=== PATIENT | female | born 1950 | race Caucasian/White ===

== ENCOUNTER 2018-11-25 09:07 | Emergency (ER) | payer MEDICARE ==
[2018-11-25] MEDS ORDERED: Albuterol 2.5 MG/3 ML NEB.SOL* (0.083%) INH ONE (11:26)
[2018-11-25] MEDS ORDERED: predniSONE TAB* 20 MG PO ONE (11:26)
--- NOTE | 2018-11-25 11:42 | UC ---
Respiratory Complaint HPI - HPI Summary HPI Summary: 2 DAYS OF COUGH, CONGESTION AND FEVER, TMAX 101 LAST NIGHT. FEELS SHORT OF BREATH AND WHEEZY. HAS A HISTORY OF ASTHMA AND DID USE HER ALBUTEROL WITH SOME TRANSIENT EFFECT. NO NAUSEA, HEADACHE, BODY ACHES. - History of Current Complaint Chief Complaint: UCRespiratory Stated Complaint: URI SX Time Seen by Provider: 11/25/18 11:20 Hx Obtained From: Patient Onset/Duration: Gradual Onset, Lasting Days, Still Present Timing: Constant Severity Initially: Moderate Severity Currently: Moderate Pain Intensity: 0 Pain Scale Used: 0-10 Numeric Character: Cough: Nonproductive Aggravating Factors: Nothing Alleviating Factors: Nothing Associated Signs And Symptoms: Positive: Dyspnea, Fever, Chills, Wheezing, URI, Nasal Congestion - Allergies/Home Medications Allergies/Adverse Reactions: Allergies Allergy/AdvReac Type Severity Reaction Status Date / Time Sulfa (Sulfonamide Allergy Unknown Unknown Verified 11/25/18 09:18 Antibiotics) Reaction Details gluten Allergy POOR Verified 11/25/18 09:18 DIGESTION DAIRY Allergy Congestion Uncoded 11/25/18 09:18 Home Medications: Home Medications Potassium Chlor TAB* [Potassium Chlor TAB 20 MEQ*] 20 meq PO DAILY 11/25/18 [ History Confirmed 11/25/18] PMH/Surg Hx/FS Hx/Imm Hx Respiratory History: Asthma - Surgical History Surgical History: Yes Surgery Procedure, Year, and Place: LEFT INGUINAL HERNIA REPAIR LT CATERACT=. TONSILLECTOMY. 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 bilat CATARACT SURGERY- [facility] [place]. MINI LAPAROTOMY AND TUBAL LIGATION-1983 - Family History Known Family History: Positive: Non-Contributory - Social History Alcohol Use: Daily Alcohol Amount: 1 glass of wine Substance Use Type: None Smoking Status (MU): Never Smoked Tobacco - Immunization History Most Recent Influenza Vaccination: UNSURE & REFUSES Most Recent Tetanus Shot: UP TO DATE Most Recent Pneumonia Vaccination: UNSURE & REFUSES Review of Systems All Other Systems Reviewed And Are Negative: Yes Constitutional: Positive: Fever, Chills, Fatigue ENT: Positive: Nasal Discharge Respiratory: Positive: Shortness Of Breath, Cough, Other - WHEEZE Cardiovascular: Positive: Negative Gastrointestinal: Positive: Negative Physical Exam Triage Information Reviewed: Yes Appearance: Well-Appearing, No Pain Distress, Well-Nourished Vital Signs: Initial Vital Signs Temp 98.4 F 11/25/18 09:13 Pulse 83 11/25/18 09:13 Resp 14 11/25/18 09:13 BP 125/57 11/25/18 09:13 Pulse Ox 96 11/25/18 09:13 Vital Signs Reviewed: Yes Eyes: Positive: Conjunctiva Clear ENT: Positive: Hearing grossly normal, Pharynx normal, TMs normal Neck: Positive: Supple, Nontender, No Lymphadenopathy Respiratory: Positive: No respiratory distress, No accessory muscle use, Decreased breath sounds, Rhonchi - OCCASIONAL IN BASES, Wheezing - DIFFUSE Cardiovascular Exam: Normal Abdomen Description: Positive: Soft Musculoskeletal: Positive: No Edema Neurological: Positive: Alert Psychological: Positive: Age Appropriate Behavior Skin: Negative: Rashes Diagnostics - Radiology CXR Radiology Interpretation Completed By: Radiologist Summary of Radiographic Findings: HYPERINFLATION, CONSISTENT WITH COPD. NO ACTIVE CARDIOPULMONARY DISEASE. Re-Evaluation - Re-Evaluation First Eval Re-Evaluation Time: 12:20 - FEELS BETTER AFTER ALBUTEROL NEB AND PREDNISONE Change: Improved Respiratory Course/Dx - Differential Dx/Diagnosis Provider Diagnosis: COPD exacerbation Discharge - Sign-Out/Discharge Documenting (check all that apply): Patient Departure All imaging exams completed and their final reports reviewed: Yes - Discharge Plan Condition: Stable Disposition: HOME Prescriptions: Albuterol HFA INHALER* [Ventolin HFA Inhaler*] 2 puff INH Q4H PRN #1 mdi PRN Reason: Shortness Of Breath Azithromycin 500 mg PO DAILY #5 tab predniSONE TAB* [Deltasone TAB*] 50 mg PO DAILY #4 tab Patient Education Materials: COPD (Chronic Obstructive Pulmonary Disease) (ED) Referrals: Ira Dela Cruz MD [Primary Care Provider] - If Needed Additional Instructions: CHEST X-RAY TODAY SHOWS CHANGES CONSISTENT WITH COPD. THIS UNDERLYING LUNG CONDITION PUTS YOU AT INCREASED RISK OF DEVELOPING SECONDARY BACTERIAL INFECTION. TAKE THE ANTIBIOTIC DAILY. CONTINUE PREDNISONE FOR AN ADDITIONAL 4 DAYS. ALBUTEROL REFILL ALSO SENT IN. FOLLOW-UP WITH YOUR PCP TO DISCUSS FURTHER EVALUATION FOR YOUR POSSIBLE DIAGNOSIS OF COPD. REST, HYDRATE, OTC MEDS NEEDED FOR SYMPTOM RELIEF. - Billing Disposition and Condition Condition: STABLE Disposition: Home
[2018-11-25 12:40] VITALS: BP 115/65
== END 2018-11-25 12:39 | disposition home or self-care (01) ==
LOC: UCEAST 09:07
DX: J44.1 Chronic obstructive pulmonary disease with (acute) exacerbation (principal); Z88.2 Allergy status to sulfonamides; Z91.018 Allergy to other foods; Z91.011 Allergy to milk products
CPT/HCPCS: 71046; 99212; G0463; J7512